=== PATIENT | female | born 1965 | race Caucasian/White ===

== ENCOUNTER 2021-09-06 19:14 | Observation (INO) ==
[2021-09-06 19:49] LABS: Basophils % 0.6 %; Eosinophils # 0.2 K/mcL (0.0-0.6); Eosinophils % 3.4 %; Hematocrit 39.3 % (35.3-44.9); Immature Granulocytes % 0.4 % (0-4); Lymphocytes # 2.1 K/mcL (0.6-4.6); Lymphocytes % 31.4 %; Mean Corpuscular HGB Conc 33.1 g/dL (31.6-35.5); Mean Corpuscular Hemoglobin 30.2 pg (28.0-33.3); Mean Corpuscular Volume 91.4 fL (83.0-100.0); Mean Platelet Volume 10.1 fL (9.4-12.4); Monocytes # 0.6 K/mcL (0.0-1.3); Monocytes % 8.8 %; Neutrophils # 3.8 K/mcL (1.6-8.9); Platelet Count 224 K/mcL (140-400); Red Cell Distribution Width 12.9 % (11.5-14.5); Segmented Neutrophils % 55.4 %; White Blood Count 6.8 K/mcL (4.3-11.1)
[2021-09-06 20:10] LABS: BUN/Creatinine Ratio 24 (6-26); Blood Urea Nitrogen 22 mg/dL (6-20); Calcium 9.4 mg/dL (8.6-10.3); Carbon Dioxide 26 mEq/L (23-29); Chloride 104 mEq/L (98-107); Glucose 124 mg/dL (70-105); Osmolality,Calculated 289 (280-300); Potassium 3.2 mEq/L (3.5-5.1); Sodium 137 mEq/L (136-145); Troponin I < 0.03 ng/mL (< 0.04); eGFR For African Americans > 60 (> 60); eGFR For Non-African Americans > 60 (> 60)
[2021-09-06] MEDS ORDERED: Aspirin 325 MG TABLET PO ONE (20:12)
[2021-09-06 20:24] LABS: Thyroid Stimulating Hormone 7.094 mcIU/mL (0.340-5.600)
[2021-09-06 20:38] LABS: Magnesium 1.8 mg/dL (1.6-2.6); Phosphorous 2.5 mg/dL (2.7-4.5)
[2021-09-06 21:01] LABS: VBG Ionized Calcium 1.19 mmol/L (1.15-1.35)
[2021-09-06] MEDS ORDERED: Potassium Chloride Elixir 20 MEQ/15 ML UDC PO ONE (21:08)
[2021-09-06 21:33] LABS: Bilirubin,Urine Negative (Negative); Blood,Urine Negative (Negative); Clarity,Urine Clear (Clear); Color,Urine Colorless (Yellow); Glucose,Urine (UA) Normal (Normal); Ketones,Urine Negative (Negative); Leukocyte Esterase,Urine Small (Negative); Mucus,Urine Few per lpf (None-Few); Nitrite,Urine Negative (Negative); PH,Urine 6.5 pH Units (5.0-8.0); Protein,Urine Negative (Neg-Trace); RBC,Urine 0-3 per hpf (0-3); Specific Gravity,Urine 1.007 (1.010-1.025); Squamous Epithelial Cell,Urine Few per hpf (None-Few); Urobilinogen,Urine Normal (Normal); WBC,Urine 0-3 per hpf (0-3)
[2021-09-07] MEDS ORDERED: Naloxone 0.4 MG/ML INJ IVP PRN (00:19)
[2021-09-07] MEDS ORDERED: Perflutren Lipid Microsphere 1.3 ML in 0.9 % Sodium Chloride 8.7 ML IVP PRN (01:19)
[2021-09-07 02:17] LABS: Basophils % 0.4 %; Eosinophils # 0.2 K/mcL (0.0-0.6); Eosinophils % 2.2 %; Hematocrit 37.9 % (35.3-44.9); Hemoglobin 12.8 g/dL (11.5-15.4); Immature Granulocytes % 0.3 % (0-4); Lymphocytes # 1.5 K/mcL (0.6-4.6); Lymphocytes % 21.6 %; Mean Corpuscular HGB Conc 33.8 g/dL (31.6-35.5); Mean Corpuscular Hemoglobin 30.1 pg (28.0-33.3); Mean Corpuscular Volume 89.2 fL (83.0-100.0); Mean Platelet Volume 10.3 fL (9.4-12.4); Monocytes # 0.7 K/mcL (0.0-1.3); Monocytes % 9.7 %; Neutrophils # 4.5 K/mcL (1.6-8.9); Platelet Count 242 K/mcL (140-400); Red Blood Count 4.25 M/mcL (3.82-4.97); Red Cell Distribution Width 12.9 % (11.5-14.5); Segmented Neutrophils % 65.8 %; White Blood Count 6.8 K/mcL (4.3-11.1)
[2021-09-07 02:26] LABS: D-Dimer 963 ng/mLFEU (0-500)
[2021-09-07 02:36] LABS: BUN/Creatinine Ratio 25 (6-26); Blood Urea Nitrogen 16 mg/dL (6-20); Calcium 9.6 mg/dL (8.6-10.3); Carbon Dioxide 25 mEq/L (23-29); Chloride 107 mEq/L (98-107); Chol/HDL Ratio 5.7 (0-4.9); Cholesterol 257 mg/dL (< 200); Glucose 97 mg/dL (70-105); HDL Cholesterol 45 mg/dL (40-59); LDL Cholesterol,Calculated 185 mg/dL (< 100); Osmolality,Calculated 289 (280-300); Phosphorous 3.7 mg/dL (2.7-4.5); Potassium 4.1 mEq/L (3.5-5.1); Sodium 139 mEq/L (136-145); Triglycerides 134 mg/dL (< 150); eGFR For African Americans > 60 (> 60); eGFR For Non-African Americans > 60 (> 60)
[2021-09-07] MEDS ORDERED: *HR* Heparin 5,000 UNIT/ML VIAL IVP ONE (02:39)
[2021-09-07] MEDS ORDERED: *HR* Heparin 5,000 UNIT/ML VIAL IVP PRN ×2 (02:39)
[2021-09-07] MEDS ORDERED: Isovue-370 500 ML BOTTLE IVP ONE (02:40)
[2021-09-07 02:52] LABS: Heparin anti-factor XA UFH < 0.04 IU/mL (0.30-0.70)
[2021-09-07] MEDS: Heparin 25,000UNIT/250ML 1/2NS 25,000 UNIT/250 ML IV.SOLN IVC SCH (03:21)
[2021-09-07 04:33] LABS: Estimated Average Glucose 114 mg/dl; Hemoglobin A1C 5.6 %
[2021-09-07] MEDS ORDERED: Regadenoson 0.4 MG/5 ML SYRINGE IVP ONE (10:00)
[2021-09-07 10:01] LABS: Chol/HDL Ratio 5.1 (0-4.9)
[2021-09-07] MEDS: Aspirin 81 MG TAB.CHEW PO SCH (11:57)
[2021-09-07] MEDS: Metoprolol XL (24 HR) Succ 25 MG TAB.ER.24H PO SCH (11:57)
[2021-09-08] MEDS ORDERED: Acetaminophen 325 MG TABLET PO ONE (00:16)
[2021-09-08] MEDS: Heparin 25,000UNIT/250ML 1/2NS 25,000 UNIT/250 ML IV.SOLN IVC SCH (06:00)
[2021-09-08] MEDS ORDERED: Acetaminophen 325 MG TABLET PO PRN (07:31)
[2021-09-08] MEDS: Metoprolol XL (24 HR) Succ 25 MG TAB.ER.24H PO SCH (07:36)
[2021-09-08] MEDS: Aspirin 81 MG TAB.CHEW PO SCH (07:36)
[2021-09-08] MEDS ORDERED: Ondansetron ODT 4 MG TAB.RAPDIS SL PRN (07:58)
[2021-09-08 09:31] LABS: Basophils % 0.7 %; Eosinophils # 0.2 K/mcL (0.0-0.6); Eosinophils % 3.1 %; Hematocrit 39.8 % (35.3-44.9); Immature Granulocytes % 0.4 % (0-4); Lymphocytes # 1.7 K/mcL (0.6-4.6); Lymphocytes % 30.1 %; Mean Corpuscular HGB Conc 32.7 g/dL (31.6-35.5); Mean Corpuscular Hemoglobin 30.1 pg (28.0-33.3); Mean Corpuscular Volume 92.1 fL (83.0-100.0); Mean Platelet Volume 10.2 fL (9.4-12.4); Monocytes # 0.6 K/mcL (0.0-1.3); Neutrophils # 3.1 K/mcL (1.6-8.9); Platelet Count 220 K/mcL (140-400); Red Blood Count 4.32 M/mcL (3.82-4.97); Red Cell Distribution Width 13.2 % (11.5-14.5); Segmented Neutrophils % 55.7 %; White Blood Count 5.5 K/mcL (4.3-11.1)
[2021-09-08 11:56] LABS: BUN/Creatinine Ratio 27 (6-26); Blood Urea Nitrogen 20 mg/dL (6-20); Calcium 9.6 mg/dL (8.6-10.3); Carbon Dioxide 24 mEq/L (23-29); Chloride 106 mEq/L (98-107); Glucose 87 mg/dL (70-105); Osmolality,Calculated 290 (280-300); Potassium 4.3 mEq/L (3.5-5.1); Sodium 139 mEq/L (136-145); eGFR For African Americans > 60 (> 60); eGFR For Non-African Americans > 60 (> 60)
[2021-09-08] MEDS ORDERED: 0.9 % Sodium Chloride 2,000 ML ONE (14:57)
[2021-09-08] MEDS ORDERED: ISOVUE-370 200 ML INFUS..BTL ONE (14:57)
[2021-09-08] MEDS ORDERED: Heparin 1,000 UNITS/500 mL 500 ML ONE (14:57)
[2021-09-08] MEDS ORDERED: *HR* Heparin 10,000 UNIT/10 ML VIAL ONE (14:57)
[2021-09-08] MEDS ORDERED: *HR* FentaNYL (PF) 100 MCG/2 ML VIAL ONE (14:57)
[2021-09-08] MEDS ORDERED: *HR* Midazolam HCl 2 MG/2 ML VIAL ONE (14:57)
[2021-09-08] MEDS ORDERED: Nitroglycerin 1,000 MCG/5 ML VIAL IV ONE (14:58)
[2021-09-08 15:49] VITALS: TEMP 98.2
[2021-09-08 17:31] VITALS: BP 100/65; PULSE 76; O2SAT 97
== END 2021-09-08 17:32 | disposition home or self-care (01) ==
LOC: EMEROOARM 19:14 → 3BNU 19:14 → SUATTDRO 23:28 → 3BNU 09-07 00:14
PROVIDERS: ADMIT Internal Medicine; ATTEND Registered Nurse